=== PATIENT | male | born 1945 | race Caucasian/White ===

== ENCOUNTER 2018-05-21 17:21 | Emergency (ER) | payer MEDICARE ==
[~2018-05-21] VITALS: Ht 177.8 cm; Wt 99.8 kg
[~2018-05-21 17:21] MED LIST: ASPIRIN ADULT L81 M1 PO; ATIVAN0.5 MG PO; ATIVAN1 MG PO; AUGMENTIN 875875 MG PO; BACTROBAN CREAM15 GM PO; BENTYL10 MG PO; CARVEDILOL3.125 MG PO; CLOPIDOGREL75 MG PO; COREG3.125 MG; ECPIRIN325 MG PO; FLOMAX0.4 MG PO; IMDUR30 MG PO; KEFLEX500 MG PO; MIRALAX POWDER17 G1 PO; NITROSTAT0.4 MG; PEPCID20 MG PO; PLAVIX75 MG; PRAVASTATIN SOD40 MG; PRAVASTATIN SOD40 MG PO; TOBREX 5 ML5 ML OPH; VICODIN 5/500 505 MG PO; [UNRECOGNIZED DRUG - REMARK]
== END 2018-05-21 19:58 | disposition left against medical advice (07) ==
LOC: ED 17:21
DX: K59.00 Constipation, unspecified (principal); Z53.21 Procedure and treatment not carried out due to patient leaving prior to being seen by health care provider; Z79.2 Long term (current) use of antibiotics; Z79.899 Other long term (current) drug therapy; Z79.82 Long term (current) use of aspirin

== ENCOUNTER → 2019-09-17 | Day surgery (SDC) | payer MEDICARE ==
[~2019-09-17] VITALS: Ht 177.8 cm; Wt 102.1 kg
[~2019-09-17] MED LIST changes: +FISH OIL 1,0001 EAC6 PO; +MULTI-VITAMIN1 EACH PO; +OSTERA TABLET1 EACH PO; +RAPAFLO4 MG PO
[2019-09-17 10:45] VITALS: BP 134/89
[2019-09-17 12:07] VITALS: BP 163/82
[2019-09-17 12:19] VITALS: BP 151/76
[2019-09-17 12:27] VITALS: BP 154/86
== END | disposition home or self-care (01) ==
LOC: SDC 09-12 09:30
DX: H25.812 Combined forms of age-related cataract, left eye (principal); I10 Essential (primary) hypertension; J45.909 Unspecified asthma, uncomplicated; I25.10 Atherosclerotic heart disease of native coronary artery without angina pectoris; K21.9 Gastro-esophageal reflux disease without esophagitis; G47.30 Sleep apnea, unspecified; E66.9 Obesity, unspecified; Z68.32 Body mass index [BMI] 32.0-32.9, adult; Z95.5 Presence of coronary angioplasty implant and graft; Z79.899 Other long term (current) drug therapy

== ENCOUNTER 2021-08-23 12:19 | Emergency (ER) | payer MEDICARE ==
[~2021-08-23] VITALS: Wt 81.6 kg
== END 2021-08-23 23:07 ==
LOC: ED 12:19
DX: I46.9 Cardiac arrest, cause unspecified (principal); J45.909 Unspecified asthma, uncomplicated; I50.9 Heart failure, unspecified; I11.0 Hypertensive heart disease with heart failure; I25.10 Atherosclerotic heart disease of native coronary artery without angina pectoris; Z79.899 Other long term (current) drug therapy; Z79.82 Long term (current) use of aspirin; Z98.890 Other specified postprocedural states